=== PATIENT | female | born 1995 | race African-American/Black ===

== ENCOUNTER 2019-02-17 08:45 | Emergency (ER) | payer OTHER ==
[~2019-02-17] VITALS: Ht 165.1 cm; Wt 68.0 kg
[~2019-02-17 08:45] MED LIST: ACCUNEB SO1.25 MG/1 INH; IBUPROFEN 800800 M1 PO; ONDANSETRON HCL4 M2 PO
[2019-02-17 11:39] VITALS: BP 123/78
== END 2019-02-17 11:40 | disposition home or self-care (01) ==
LOC: ER 08:45
DX: S90.811A Abrasion, right foot, initial encounter (principal); J45.909 Unspecified asthma, uncomplicated; Z88.0 Allergy status to penicillin; V03.10XA Pedestrian on foot injured in collision with car, pick-up truck or van in traffic accident, initial encounter; Y92.89 Other specified places as the place of occurrence of the external cause; Y93.89 Activity, other specified; Y99.8 Other external cause status